=== PATIENT | male | born 1950 | race Caucasian/White ===

== ENCOUNTER 2024-10-04 18:51 | Emergency (ER) | payer MEDICARE, OTHER ==
[~2024-10-04] VITALS: Ht 185.4 cm; Wt 110.0 kg
[~2024-10-04 18:51] MED LIST: ACIPHEX20 MG PO; ACTOS15 MG PO; ASPIRIN EC81 MG PO; CITRACAL + BON1 EACH PO; FISH OIL 1,001000 MG PO; METFORMIN HCL500 MG PO; MUCINEX1200 MG PO; OMEPRAZOLE20 MG PO; PRAVASTATIN SOD20 MG PO; SIMVASTATIN20 MG PO
[2024-10-04] MEDS ORDERED: OZEMPIC0.25 MG/02 SQ (21:25)
[2024-10-04] MEDS ORDERED: DIPHTH,PERTUSS(ACELL),TET VAC 0.5 ML SYRINGE IM ONE (22:00)
[2024-10-04 22:15] VITALS: BP 139/83
== END 2024-10-04 22:19 | disposition home or self-care (01) ==
LOC: ED 18:51
DX: S80.01XA Contusion of right knee, initial encounter (principal); E78.00 Pure hypercholesterolemia, unspecified; K21.9 Gastro-esophageal reflux disease without esophagitis; W01.0XXA Fall on same level from slipping, tripping and stumbling without subsequent striking against object, initial encounter; Z79.82 Long term (current) use of aspirin; Z79.84 Long term (current) use of oral hypoglycemic drugs; Z79.899 Other long term (current) drug therapy; Z87.891 Personal history of nicotine dependence
CPT/HCPCS: 73560; 90471; 90715; 99283-25